=== PATIENT | female | born 1965 | race Caucasian/White ===

== ENCOUNTER 2024-11-04 10:31 | Emergency (ER) | payer BC, SELFPAY ==
--- OUTSIDE RECORDS SUMMARY | 2024-10-24 03:30 | XMS_ITS ---
Author Organization [facility] Address [address] [place] [address] Care Team Providers Care Tool Grinding Technician Name Role Phone Kristie Raudel Primary Care Provider [phone] Cat Foy Unavailable [phone] Allergies Allergen (clinical drug ingredient) Drug/Non Drug Allergy documented on EMR Reaction Allergy Type Onset Date Status ciprofloxacin Ciprofloxacin Unknown Drug Allergy Active Penicillin Unknown Drug Allergy Active REASON FOR VISIT 1 month f/u, Pt here for 1 month f/u. Pt stopped Caplyta d/t bad experience, very tired and lost some moments in time, shaky hands, and anxiety attacks. Sleep is crappy wakes up every hour or 2. Appetite is normal. [facility] Medications Medication SIG (Take, Route, Frequency, Duration) Notes Start Date End Date Status Citalopram Hydrobromide 40 MG 1 tablet Orally Once a day for 30 days Active traZODone HCl 50 MG 1 tablet once a day for 5 days, 2 tablets once a day for 5 days, 3 tablets once a day for 20 days Orally for 30 days 08/10/2024 Active oxyBUTYnin Chloride ER 10 MG 1 tablet Orally Once a day Not-Taking Caplyta 42 MG 1 capsule Orally Onc e a day for 30 days 07/13/2024 Not-Taking Lurasidone HCl 20 MG 1 tablet in the evening with food Orally Once a day for 30 days 10/24/2024 Active Levothyroxine Sodium 50 MCG 1 tablet in the morning on an empty stomach Orally Once a day Active Omeprazole 20 MG 1 capsule 1/2 to 1 hour before morning meal Orally twice a day Active Fenofibrate 145 MG 1 tablet Orally Once a day Active Famotidine 20 MG 1 tablet at bedtime as needed Orally twice a day Active Lisinopril-hydroCHLOROthia zide 20-25 MG 1 tablet Orally Once a day Active Magnesium Active Aspirin 81 81 MG 1 tablet Orally Once a day Active Vitamin D3 50 MCG (1999) 1 capsule Orally Once a day Active Vitamin B12 Active Niacin ER 1000 MG 1 tablet with food Orally Once a day Active ZyrTEC-D Allergy & Congestion Not-Taking Atorvastatin Calcium 40 MG 1 tablet Oral ly Once a day Active Vitamin C Active Solifenacin Succinate 10 MG 1 tablet Orally Once a day Active Social History Tobacco Use: Social History Observation Description Date Details (start date - stop date) Current Smoker NA - NA Depression Screening (PHQ-9): Question Answer Notes Little interest or pleasure in doing things Nearly every day Feeling down, depressed, or hopeless More than h intermediate the days Trouble falling or staying a sleep, or sleeping too much Nearly every day Feeling tired or having little energy Nearly benjamin ry day Poor appetite or overeating Nearly every day Feeling bad about yourself-o r that you are a failure or have let yourself or your family down Several days Trouble concentrating on thi ngs, such as reading the newspaper or watching television Nearly every day Moving or speaking so slowly that other people could have noticed. Or the opposite being so fidgety or restless that you have been moving around a lot more than usual Several days Thoughts that you would be b kimberly off , or of hurting yourself in some way Several days(Consider Suicide Assessment Risk) Total Score 20 Intepretation Severe Depression AUDIT-C (Standard) Question Answer Notes Did you have a drink containing alcohol in the p ast year? No Points 0 Interpretation Negative Tobacco Control (Standard) Question Answer Notes Tobacco use: Current smoker How often do you smoke cigarettes? Every day How many cigarettes a day do you smoke? 11-20 Vital Signs Height 66 in 10/24/2024 Weight 187.6 lbs 10/24/2024 BMI 30.28 kg/m2 10/24/2024 Blood pressure systolic 119 mm Hg 10/25/19 25 Blood pressure diastolic 78 mm Hg 025 Oximetry 93 % 10/24/2024 Heart Rate 117 /min 10/24/2024 Encounters Encounter Location Date Provider Diagnosis [facility] [address] [place] [address] 10/24/2024 Raudel Flowers Bipolar disorder, cu rrent episode mixed, moderate F31.62 Assessments Encounter Date Diagnosis (ICD Code) Assessment Notes Treatment Notes Treatment Clinical Notes Section Notes 10/24/2024 Bipolar disorder, current episode mixed, moderate (ICD-10 - F31.62) Patient will trial Latuda 20 mg follow-up in 2 months to discuss and evaluate. Patient will continue current treatment plan. Patient verbally acknowledges understanding instructions including medication education and has no further questions comments or concerns at this time. . Follow in 2 Month . Recommended treatment for Bipolar disorder includes FDA approved and OFF label medications: second generation antipsychotics and mood stabilizers. Discussed life threatening side effect of Lamotrigine. Pt is to monitor for new skin rashes or sensation of a sunburn or itchiness or redness, mouth sores or sores in mucus membranes, and call provider immediately and or go to ER, and stop the medication. Second generation antipsychotic medications can cause headache, drowsiness, agitation, dizziness, nausea, or extrapyramidal symptoms such as tremors, muscle spasms, slowness of movement or jerking of muscles. . Stable . The patient verbalizes understanding with all questions answered thoroughly and is in agreement with treatment plan. . Continue current treatment. Call for problems . GOALS: . Maintain medication regimen . _Improve mood stability . _Improve anxiety control . _Improve social and interpersonal functioning . Patient/Guardian will call sooner if symptoms worsen. Patient understands to go to ER if needed if symptoms become severe. . Crisis Intervention plan was discussed and agreed upon. Patient/Guardian will call 911 in case of emergency. Emergency contact information was provided to the patient/guardian. . Pharmacological management: . Alternative medication plans were discussed with the patient/guardian. All relevant side effects and potential adverse effects were discussed with the patient/guardian. Standard cautions and potential benefits were discussed. Patient/Guardian consented to the start/continuation of the treatment. Plan Of Treatment Medication Medication Name Sig Start Date Stop Date Notes Lurasidone HCl 20 MG 1 tablet in the benjamin flory with food Orally Once a day for 30 days 10/24/2024 Next Appt Details Follow Up: 2 Months, Reason: med check Provider Name:Cat hernandez, 11/14/2024 05:00:00 PM, [address] [place], [address], Provider Name:Cat hernandez, 11/28/2024 05:00:00 PM, [address] [place], [address], Provider Name:Raudel Flowers, 12/20/2024 07:30:00 AM, [address] [place], [address], Progress Notes * MOSHE ATWOODOB:1965 ( 59 yo F)Acc No.[id number]:10/24/2024 Behavioral Health Patient: EMILY MARTINEZ Provider: SOFIA Sinha :1965 A ge:59 Y S ex:Female Date:10/24/2024 Address:[address] [place], [place] [id number] Subjective: * Chief Complaints: * 1 month f/uPt here for 1 month f/u. Pt stopped Caplyta d/t bad experience, very tired and lost some moments in time, shaky hands, and anxiety attacks. Sleep is crappy wakes up every hour or 2. Appetite is normal. KSJ * HPI: C onstitutional: . Patient had adverse reaction to Caplyta actually had several fugue type states where she does not recall driving or picking up food. Pt is here for follow up. Pt is doing well, taking meds daily, tolerating well. Mood has not been fluctuating. Energy and motivation stable, concentration intact without distractibility. Sleeping though the night, feels rested. Attending work as scheduled. Denies increased goal oriented behavior or increase in purposeless activity. Depressive symptoms are not persistent, denies having sadness, anhedonia, isolating behaviors, or crying spells. Denies Euphoria. Pervasive irritability is controlled today. Anxiety not occurring. Tolerating meds well, compliant daily. Meaningful relationships intact. Would like to continue current treatment plan. . Denies suicidal or homicidal ideation or plan. No morbid thoughts. Interpersonal issues discussed. Support provided. Insight oriented/ Behavior modifying/ Supportive therapy . 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 M other: alive. P aternal Grand Father: . P aternal Grand Mother: . M aternal Grand Father: . M aternal Grand Mother: . 1 brother(s) . 2 son(s) , 1 daughter(s) . . * Social History: G eneral: D epression Screening (PHQ-9) L ittle interest or pleasure in doing things?Nearly every day F eeling down, depressed, or hopeless M ore than half the days T rouble falling or staying asleep, or sleeping too much N early every day F eeling tired or having little energy N early every day P oor appetite or overeating N early every day F eeling bad about yourself-or that you are a failure or have let yourself or your family down S everal T rouble concentrating on things, such as reading the newspaper or watching television N early every day M oving or speaking so slowly that other people could have noticed. Or the opposite being so fidgety or restless that you have been moving around a lot more than usual S everal days T houghts that you would be better off , or of hurting yourself in some way S everal (Consider Suicide Assessment Risk) T otal Score 2 0 I ntepretation S evere Depression D rug/Alcohol: A MELE-C (Standard) D id you have a drink containing alcohol in the past year? N o P oints 0 I nterpretation N egative T obacco Use: T obacco Control (Standard) T obacco use: C urrent smoker H ow often do you smoke cigarettes? E very day H ow many cigarettes a day do you smoke? 1 1-20 * Medications: T akingSolifenacin Succinate 10 MG Tablet 1 tablet Orally Once a day Atorvastatin Calcium 40 MG Tablet 1 tablet Orally Once a day Vitamin C Magnesium Vitamin B12 Vitamin D3 50 MCG (2000 UT) Capsule 1 capsule Orally Once a day Niacin ER 1000 MG Tablet Extended Release 1 tablet with food Orally Once a day Aspirin 81 81 MG Tablet Delayed Release 1 tablet Orally Once a day Fenofibrate 145 MG Tablet 1 tablet Orally Once a day Lisinopril-hydroCHLOROthiazide 20-25 MG Tablet 1 tablet Orally Once a day Famotidine 20 MG Tablet 1 tablet at bedtime as needed Orally twice a day Omeprazole 20 MG Capsule Delayed Release 1 capsule 1/2 to 1 hour before morning meal Orally twice a day Levothyroxine Sodium 50 MCG Tablet 1 tablet in the morning on an empty stomach Orally Once a day traZODone HCl 50 MG Tablet 1 tablet once a day for 5 days, 2 tablets once a day for 5 days, 3 tablets once a day for 20 days Orally Citalopram Hydrobromide 40 MG Tablet 1 tablet Orally Once a day Taking Solifenacin Succinate 10 MG Tablet 1 tablet Orally Once a day Taking Atorvastatin Calcium 40 MG Tablet 1 tablet Orally Once a day Taking Vitamin C Taking Magnesium Taking Vitamin B12 Taking Vitamin D3 50 MCG (2000 UT) Capsule 1 capsule Orally Once a day Taking Niacin ER 1000 MG Tablet Extended Release 1 tablet with food Orally Once a day Taking Aspirin 81 81 MG Tablet Delayed Release 1 tablet Orally Once a day Taking Fenofibrate 145 MG Tablet 1 tablet Orally Once a day Taking Lisinopril-hydroCHLOROthiazide 20-25 MG Tablet 1 tablet Orally Once a day Taking Famotidine 20 MG Tablet 1 tablet at bedtime as needed Orally twice a day Taking Omeprazole 20 MG Capsule Delayed Release 1 capsule 1/2 to 1 hour before morning meal Orally twice a day Taking Levothyroxine Sodium 50 MCG Tablet 1 tablet in the morning on an empty stomach Orally Once a day Taking traZODone HCl 50 MG Tablet 1 tablet once a day for 5 days, 2 tablets once a day for 5 days, 3 tablets once a day for 20 days Orally Taking Citalopram Hydrobromide 40 MG Tablet 1 tablet Orally Once a day Not-Taking/PRNZyrTEC-D Allergy & Congestion Caplyta 42 MG Capsule 1 capsule Orally Once a day oxyBUTYnin Chloride ER 10 MG Tablet Extended Release 24 Hour 1 tablet Orally Once a day Medication List reviewed and reconciled with the patientNot-Taking/PRN ZyrTEC-D Allergy & Congestion Not-Taking/PRN Caplyta 42 MG Capsule 1 capsule Orally Once a day Not-Taking/PRN oxyBUTYnin Chloride ER 10 MG Tablet Extended Release 24 Hour 1 tablet Orally Once a day Medication List reviewed and reconciled with the patient * Allergies: P enicillinCiprofloxacinno[Allergies Verified] Objective: * Vitals: H t: 66 in, Wt: 187.6 lbs, BMI:30.28Index, BP: 119/78 mm Hg, SaO2:93%, HR: 117 /min. * Examination: G eneral Examination: GENERAL APPEARANCE: A lert and oriented, cooperative. NEUROLOGIC EXAM: a lert and oriented x 3, no tremor, normal gait, appropriate for age. PSYCH g ood eye contact, oriented to person, oriented to place, oriented to time, appropriate mood and affect, denies SI/HI, affect normal, affect appropriate, appropriate for age, good eye contact, no thought disorder. General . AIMS EXAM:.AIMS Muscles of Facial Expression: NoneAIMS Lips and Perioral Area: NoneAIMS Jaw Area Involuntary Movements: NoneAIMS Tongue Involuntary Movements: NoneAIMS Upper Arms, Wrists, Hands, Fingers: NoneAIMS Lower Legs, Knees, Ankles, Toes: NoneAIMS Overall Abnormal Movement Severity: NoneAIMS Incapacitation Abnormal Movement: NoneAIMS Self Awareness of Abnormal Movement: Aware, None notedAIMS Current Teeth, Denture Problems: NoAIMS Movements Disappear in Sleep: No. .MENTAL STATUS EXAM:.Appearance: Appropriately dressed and groomed, good eye contact, cooperative, pleasantBehavior/Motor Activity: NormalGait/Station: Within normal limitsBH Speech: NormalMood: GoodAffect: FullThought processes/Associations: Logical and goal directedThought Content: Non-psychoticCognition/Attention/Memory/Concentration: Alert and oriented x 4; grossly intact attention; memory-recent/remote judged adequate by interviewerInsight: GoodJudgement: GoodBH language: Within normal limitsFund of Knowledge: Adequate.. Assessment: * Assessment: 1. B ipolar disorder, current episode mixed, moderate - F31.62 (Primary) Plan: * Treatment: * Procedure Codes: 3 078F DIAST BP < 80 MM [id number] SYST BP LT 130 MM [id number] RVW MEDS BY RX/DR IN RD * Follow Up: 2 Months (Reason: med check) * Images: * Sign off status: Completed true * Provider: SOFIA Sinha Date: 0 10/24/2024 Generated for Geovany hardy/Russell/eTransmitting on: 0 11/04/2024 10:47 AM EDT History and Physical Notes * Examination Category Sub-Category Detail Notes Category Not es General Examination GENERAL APPEARANCE: Alert an d oriented, cooperative NEUROLOGIC EXAM: alert and oriented x 3, no tremor, normal gait, appropriate for age DIABETIC FOOT EXAM Monofilament: normal PSYCH good eye contact, or iented to person, oriented to place, oriented to time, appropriate mood and affect, denies SI/HI, affect normal, affect appropriate, appropriate for age, good eye contact, no thought disorder General .AIMS EXAM:.AIMS Mus cles of Facial Expression: NoneAIMS Lips and Perioral Area: NoneAIMS Jaw Area Involuntary Movements: NoneAIMS Tongue Involuntary Movements: NoneAIMS Upper Arms, Wrists, Hands, Fingers: NoneAIMS Lower Legs, Knees, Ankles, Toes: NoneAIMS Overall Abnormal Movement Severity: NoneAIMS Incapacitation Abnormal Movement: NoneAIMS Self Awareness of Abnormal Movement: Aware, None notedAIMS Current Teeth, Denture Problems: NoAIMS Movements Disappear in Sleep: No. .MENTAL STATUS EXAM:.Appearance: Appropriately dressed and groomed, good eye contact, cooperative, pleasantBehavior/Motor Activity: NormalGait/Station: Within normal limitsBH Speech: NormalMood: GoodAffect: FullThought processes/Associations: Logical and goal directedThought Content: Non-psychoticCognition/Attention/Memory/Concentration: Alert and oriented x 4; grossly intact attention; memory-recent/remote judged adequate by interviewerInsight: GoodJudgement: GoodBH language: Within normal limitsFund of Knowledge: Adequate.
--- OUTSIDE RECORDS SUMMARY | 2024-10-31 13:00 | XMS_ITS ---
Author Organization [facility] Address [address] [place] [address] Care Team Providers Care Firesetter Name Role Phone Raudel Flowers Primary Care Provider [phone] Cat Foy Unavailable [phone] REASON FOR VISIT BH F/U Medications Medication SIG (Take, Route, Frequency, Duration) Notes Start Date End Date Status Lurasidone HCl 20 MG 1 tablet in the evening with food Orally Once a day for 30 days 10/24/2024 Active oxyBUTYnin Chloride ER 10 MG 1 tablet Orally Once a day Not-Taking Caplyta 42 MG 1 capsule Orally Onc e a day for 30 days 07/13/2024 Not-Taking Citalopram Hydrobromide 40 MG 1 tablet Orally Once a day for 30 days Active traZODone HCl 50 MG 1 tablet once a day for 5 days, 2 tablets once a day for 5 days, 3 tablets once a day for 20 days Orally for 30 days 08/10/2024 Active Omeprazole 20 MG 1 capsule 1/2 to 1 hour before morning meal Orally twice a day Active Famotidine 20 MG 1 tablet at bedtime as needed Orally twice a day Active Lisinopril-hydroCHLOROthia zide 20-25 MG 1 tablet Orally Once a day Active Fenofibrate 145 MG 1 tablet Orally Once a day Active Levothyroxine Sodium 50 MCG 1 tablet in the morning on an empty stomach Orally Once a day Active Aspirin 81 81 MG 1 tablet Orally Once a day Active Niacin ER 1000 MG 1 tablet with food Orally Once a day Active Vitamin D3 50 MCG (1999 UT) 1 capsule Orally Once a day Active Vitamin B12 Active Magnesium Active ZyrTEC-D Allergy & Congestion Not-Taking Atorvastatin Calcium 40 MG 1 tablet Oral ly Once a day Active Solifenacin Succinate 10 MG 1 tablet Orally Once a day Active Vitamin C Active Encounters Encounter Location Date Provider Diagnosis [facility] [address] [place] [address] 10/31/2024 Cat Foy Bipolar disorder, current episode mixed, moderate F31.62 Assessments Encounter Date Diagnosis (ICD Code) Assessment Notes Treatment Notes Treatment Clinical Notes Section Notes 10/31/2024 Bipolar disorder, current episode mixed, moderate (ICD-10 - F31.62) Plan Of Treatment Next Appt Details Follow Up: 2 Weeks, Reason: Provider Name:Cat hernandez, 11/14/2024 05:00:00 PM, [address] [place], [address], Provider Name:Cat hernandez, 11/28/2024 05:00:00 PM, [address] [place], [address], Provider Name:Raudel Flowers, 12/20/2024 07:30:00 AM, [address] [place] [address], [address], Progress Notes * MOSHE ATWOODOB:1965 ( 59 yo F)Acc No.[id number]:10/31/2024 F/U - Patient Patient: EMILY MARTINEZ Provider: Bienvenido Foy :1965 A ge:59 Y S ex:Female Date:10/31/2024 Address:[address] [place], [place] [id number] Pcp:Raudel Flowers Subjective: * Chief Complaints: * 1 . F/U. * Medications: T aking Solifenacin Succinate 10 MG Tablet 1 tablet Orally Once a day , Taking Atorvastatin Calcium 40 MG Tablet 1 tablet Orally Once a day , Taking Vitamin C , Taking Magnesium , Taking Vitamin B12 , Taking Vitamin D3 50 MCG (1999 UT) Capsule 1 capsule Orally Once a day , Taking Niacin ER 1000 MG Tablet Extended Release 1 tablet with food Orally Once a day , Taking Aspirin 81 81 MG Tablet Delayed Release 1 tablet Orally Once a day , Taking Fenofibrate 145 MG Tablet 1 tablet Orally Once a day , Taking Lisinopril-hydroCHLOROthiazide 20-25 MG Tablet 1 tablet Orally Once a day , Taking Famotidine 20 MG Tablet 1 tablet at bedtime as needed Orally twice a day , Taking Omeprazole 20 MG Capsule Delayed Release 1 capsule 1/2 to 1 hour before morning meal Orally twice a day , Taking Levothyroxine Sodium 50 MCG Tablet 1 tablet in the morning on an empty stomach Orally Once a day , Taking traZODone HCl 50 MG Tablet 1 tablet once a day for 5 days, 2 tablets once a day for 5 days, 3 tablets once a day for 20 days Orally , Taking Citalopram Hydrobromide 40 MG Tablet 1 tablet Orally Once a day , Taking Lurasidone HCl 20 MG Tablet 1 tablet in the evening with food Orally Once a day , Not-Taking/PRN ZyrTEC-D Allergy & Congestion , Not-Taking/PRN Caplyta 42 MG Capsule 1 capsule Orally Once a day , Not- Taking/PRN oxyBUTYnin Chloride ER 10 MG Tablet Extended Release 24 Hour 1 tablet Orally Once a day Objective: Therapeutic Interventions: Assessment: * Assessment: 1. B ipolar disorder, current episode mixed, moderate - F31.62 (Primary) Plan: * Procedure Codes: 9 0837 PSYTX EST PT&/FAMILY 60 MIN (53+) * Follow Up: 2 Weeks * Images: Care Plan Details* Problem B H F/U Progress Note Present At Appointment: P atient Session Type: F justin to Face Start Time/End Time: S tart: 5:08End: 6:06 Mental Status Examination Orientation: O riented x 4 Mood: A nxious Affect: A ppropriate Insight/Judgment: F air Thought Process: C ircumstantial Speech: N ormal Intervention Risk Assessment: P T denies all areas of risk. No contrary indications present. Therapy Modality: c ognitive behavioral Interventions: a ssess safety risks;cognitive challenging;cognitive refocusing;cognitive reframing;encourage expression of needs;emotion regulation;healthy boundaries;identify unmet emotional needs;reflective listening;increase awareness of warning signs to triggers;problem-solve barriers;process trauma/significant life events;supportive reflection;exploration of coping skillsComments :NEGATIVE RETOUCHER offered supportive listening and validation of patients feelings. NEGATIVE RETOUCHER provided feedback as needed. NEGATIVE RETOUCHER worked with patient on her own self-esteem and working on amends per patient request. NEGATIVE RETOUCHER worked with patient on continued use of coping skills. Response to Intervention: P atient reports she started a new medication and that she was happy to start something as she felt that she was unraveling. Patient reports she has had some insight on her past relationships and accountability of them. Patient reports she feels content in her life currently. Progress: l ow * Sign off status: Completed true * Provider: Bienvenido Foy Date: 0 10/31/2024 Generated for Geovany dash/Russell/Rosalba on: 0 11/04/2024 10:46 AM EDT
--- OUTSIDE RECORDS SUMMARY | 2024-11-01 11:45 | XMS_ITS | Encounter Summary ---
Author Organization [facility] Address [address] [place] [address] Care Team Providers Care Dianeticist Name Role Phone Basil Finn MD Primary Care Provider [phone] Encounter Details Date Type Department Care Team ([facility] st Contact Info) Description 11/01/2024 11:45 AM EDT [facility] [address] [place] [address] Basil Finn MD [address] [place] [phone] Degeneration of intervertebral disc of lumbar region with lower extremity pain (Primary Dx) Social History Tobacco Use Types Packs/Day Years Used Date Smoking Tobacco: Every Day Cigarettes 1.5 78.4 Started: 1977 Passive Smoke Exposure: Current Smokeless Tobacco: Never Tobacco Cessation:Ready to Q uit: No; Counseling Given: Yes Alcohol Use Standard Drinks/Week Comments Not Currently 0 (1 standard drink = 0.6 oz pur e alcohol) B1300 Health Literacy Answer Date Recor ded How often do you need to hav e someone help you when you read instructions, pamphlets, or other written material from your doctor or pharmacy? Never 01/04/2024 Social Connection and Isolat ion Panel [NHANES] Answer Date Recorded In a typical week, how many times do you talk on the phone with family, friends, or neighbors? Once a week 01/04/2024 How often do you get togethe r with friends or relatives? Once a week 01/04/2024 How often do you attend chur or church services? More than 4 times per year 01/04/2024 Do you belong to any clubs o r organizations such as mandaeism groups, unions, fraternal or athletic groups, or school groups? No 01/04/2024 How often do you attend meet ings of the clubs or organizations you belong to? Never 01/04/2024 Are you , , di vorced, , never , or living with a partner? 01/04/2024 AUDIT-C Answer Date Recorded Q1: How often do you have a drink containing alc ohol? Monthly or less 01/04/2024 Q2: How many drinks containi ng alcohol do you have on a typical day when you are drinking? 1 or 2 01/04/2024 Q3: How often do you have si x or more drinks on one occasion? Less than monthly 01/04/2024 Overall Financial Resource Strain (CARDIA) Answe r Date Recorded How hard is it for you to pa y for the very basics like food, housing, medical care, and heating? Not hard at all 01/04/2024 [facility] - Occupational Stress Questionnaire Answer Date Recorded Do you feel stress - tense, restless, nervous, or anxious, or unable to sleep at night because your mind is troubled all the time - these days? Very much 01/04/2024 Exercise Vital Sign Answer Date Recorde d On average, how many days pe r week do you engage in moderate to strenuous exercise (like a brisk walk)? 1 day 01/04/2024 On average, how many minutes do you engage in exercise at this level? 10 min 01/04/2024 Hunger Vital Sign Answer Date Recorded Within the past 12 months, y ou worried that your food would run out before you got the money to buy more. Never true 01/04/20 24 Within the past 12 months, t he food you bought just didn't last and you didn't have money to get more. Never true 01/04/2024 PRAPARE - Transportation Answer Date Re corded In the past 12 months, has l ack of transportation kept you from medical appointments or from getting medications? No 12/23 In the past 12 months, has l ack of transportation kept you from meetings, work, or from getting things needed for daily living? No 01/04/2024 Housing Stability Vital Sign Answer Bernardo e Recorded In the last 12 months, was t here a time when you were not able to pay the mortgage or rent on time? No 01/04/2024 In the past 12 months, how m any times have you moved where you were living? 0 01/04/2024 At any time in the past 12 m [facility], were you homeless or living in a correction (including now)? No 01/04/2024 Comments No Sex and Gender Information Value Date Recorded Sex Assigned at Not on file Legal Sex Female 6:44 PM EDT Gender Identity Not on file Sexual Orientation Not on file documented as of this encounter Last Filed Vital Signs Vital Sign Reading Time Taken Comments Blood Pressure 126/76 11/01/2024 11:48 AM EDT Pulse 93 11/01/2024 11:48 AM EDT Temperature 36.6 C (97.8 F) 11/01/2024 11:48 AM EDT Respiratory Rate - - Oxygen Saturation 97% 11/01/2024 11:48 AM EDT Inhaled Oxygen Concentration - - Weight 86.8 kg (191 lb 4 oz) 11/01/2024 11:48 AM EDT Height 167.6 cm (5' 6 ) 11/01/2024 11:48 AM EDT Body Mass Index 30.87 11/01/2024 11:48 AM EDT documented in this encounter Progress Notes * Basil Finn MD - 11/01/2024 12:24 PM EDTAssociated Problem(s): DDD (degenerative disc disease), lumbar Developed sciatica and likely related to DDD. Start prednisone and use norco PRN. Continue naproxen. Handout with ROM exercises to patient. If no improvement will need PT and x-ray. * Basil Finn MD - 11/01/2024 11:45 AM EDT Images from the original note were not included. Subjective Patient ID: Kimberly Andino is a 59 y.o. female who presents for No chief complaint on file.. C/o pain in left gluteal region and back of leg for months. Pain in gluteal region next to bone where she sits. Pain down butt cheek into back left leg. Pain stops above knee. History of lumbar DDD but no pain in back. Pain pain into groin or outer hip. Pain worse with sitting but now having pain with walking and standing. No change in activity and no fall, injury, or trauma. Using naproxen and not much relief. Review of Systems Respiratory: Negative for cough, shortness of breath and wheezing. Cardiovascular: Negative for chest pain and palpitations. Gastrointestinal: Negative for abdominal pain, diarrhea, nausea and vomiting. Genitourinary: Negative for dysuria. Objective Physical Exam Constitutional: General: She is not in acute distress. Appearance: Normal appearance. HENT: Head: Normocephalic. Right Ear: Tympanic membrane normal. Left Ear: Tympanic membrane normal. Eyes: Extraocular Movements: Extraocular movements intact. Pupils: Pupils are equal, round, and reactive to light. Cardiovascular: Rate and Rhythm: Normal rate and regular rhythm. Heart sounds: No murmur heard. No friction rub. No gallop. Pulmonary: Effort: Pulmonary effort is normal. Breath sounds: Normal breath sounds. No wheezing, rhonchi or rales. Abdominal: General: Bowel sounds are normal. There is no distension. Palpations: Abdomen is soft. Tenderness: There is no abdominal tenderness. There is no guarding or rebound. Musculoskeletal: Cervical back: Neck supple. Right lower leg: No edema. Left lower leg: No edema. Neurological: Mental Status: She is alert. Assessment/Plan Problem List Items Addressed This Visit DDD (degenerative disc disease), lumbar - Primary Developed sciatica and likely related to DDD. Start prednisone and use norco PRN. Continue naproxen. Handout with ROM exercises to patient. If no improvement will need PT and x-ray. Relevant Medications predniSONE (Deltasone) 50 MG tablet HYDROcodone-acetaminophen (Briscoe) 5-325 MG tablet documented in this encounter Plan of Treatment Upcoming Encounters Date Type Department Care Team (Late st Contact Info) Description 01/04/2025 7:00 AM EDT Office Visit [facility] [address] [place] [address] Basil Finn MD [address] [place] [address] documented as of this encounter Visit Diagnoses Diagnosis Degeneration of intervertebral disc of lumbar region with lower extremity pain- Primary documented in this encounter Care Teams Dianeticist Relationship Specialty Start Date End Date Basil Finn MD [address] [place] [address] PCP - General Family Medicine 06/22/23 documented as of this encounter
[2024-11-04 10:36] VITALS: BP 130/92; PULSE 80; TEMP 36.7; O2SAT 94; BMI 29.9
--- OUTSIDE RECORDS SUMMARY | 2024-11-04 10:47 | XMS_ITS | Patient Health Record ---
Author Organization [facility] [place] Address [address] [place] [address] Support Name Relationship Address Phone Sheela Bajwa Emergency Contact Unknown Kimberly Andino Guarantor Unknown [phone] Reason For Referral No Information Medications Medication SIG (Take, Route, Frequency, Duration) Notes Start Date End Date Status aspirin 81 mg 1 tablet DAILY Active Zantac 300 mg 1 tablet DAILY Active loratadine 10 mg 1 tablet DAILY Active Lisinopril 10 mg 1 tablet DAILY Active NexIUM 40 mg 2 delayed release ca psule DAILY Active Synthroid 50 mcg (0.05 mg) 1 tablet DAILY 05/25/18 Active Tricor 145 mg 1 tablet DAILY Active Niaspan 1000 mg 2 tablet, extended r elease DAILY Active Plan Of Treatment Pending Test Test Name Order Date CRP 09/08/2023 BUN 02/05/2023 ESR 09/08/2023 ANTI CARDIOLIPIN AB IGG IGA IGM 09/08/19 24 ANTI THROMBIN 3 FUNCT 09/08/2023 PROTEIN S ACTIVITY 09/08/2023 CBC AND AUTO DIFF * 02/05/2023 CREATININE 02/05/2023 HOMOCYSTEINE, SERUM 09/08/2023 HGB A1C (GLYCO-HGB) 02/05/2023 APC RESISTANCE PANEL 09/08/2023 MTHFR 09/08/2023 LIPID PANEL 02/05/2023 LIPID PANEL 09/08/2023 Insurance Providers Payer Name Payer Address Payer Phone Subscriber Number Group Number Insured Name Patient Relationship to Insured Coverage Start Date Coverage End Date [employer] [place] [address] [facility] TYREE ADRIAN [id number] [phone] [id number] Kimberly Andino Self - patient is the insured 1
--- OUTSIDE RECORDS SUMMARY | 2024-11-04 10:47 | XMS_ITS | Encounter Summary ---
Author Organization [facility] Address [id number] [address] [place] [address] Care Team Providers Care Multimedia Engineer Name Role Phone Basil Finn MD Primary Care Provider [phone] Encounter Details Date Type Department Care Team ([facility] Contact Info) Description 08/19/2023 Telephone [facility] - Enzo Negrtee MD [address] [facility] [address] [place] [phone] Lizett Newman CMA Social History Tobacco Use Types Packs/Day Years Used Date Smoking Tobacco: Former Cigarettes 1 40 1 05/1982 - 03/2023 Smokeless Tobacco: Never Alcohol Use Standard Drinks/Week Comments Not Currently 0 (1 standard drink = 0.6 oz pur e alcohol) Childcare Answer Date Recorded Childcare Unknown 10/28/2018 Employment Answer Date Recorded Employment Unknown 10/28/2018 Hunger Screening Answer Date Recorded Within the past 12 months we worried whether our food would run out before we got money to buy more. Never True 08/19/2023 Within the past 12 months th e food we bought just didn't last and we didn't have money to get more. Never True 08/19/2023 Purpose - Life Answer Date Recorded Purpose and direction in life Unknown Comments No Sex and Gender Information Value Date Recorded Sex Assigned at Female 08/09/2023 4:50 PM EDT Legal Sex Female 12:58 PM EDT Gender Identity Female 08/09/2023 4:50 PM EDT Sexual Orientation Straight 08/09/2023 4: 50 PM EDT documented as of this encounter Miscellaneous Notes * Telephone Encounter - Lizett Newman CMA - 08/19/2023 9:44 AM EDT Called patient and confirmed she had CT scheduled. She states she is having it done in December and she follows up with Dr. Negrete in January,. documented in this encounter Plan of Treatment Not on file documented as of this encounter Visit Diagnoses Not on filedocumented in this encounter Care Teams Multimedia Engineer Relationship Specialty Start Date End Date Basil Finn MD PCP - General Family Medicine 01/20/24 documented as of this encounter
--- OUTSIDE RECORDS SUMMARY | 2024-11-04 10:48 | XMS_ITS | Patient Health Record ---
Author Organization [facility] es Address [address] [place] [address] Care Team Providers Care Screen Tender Helper Name Role Phone Kristie Raudel Primary Care Provider [phone] Cat Foy Unavailable [phone] Allergies Allergen (clinical drug ingredient) Drug/Non Drug Allergy documented on EMR Reaction Allergy Type Onset Date Status ciprofloxacin Ciprofloxacin Unknown Drug Allergy Active Penicillin Unknown Drug Allergy Active Reason For Referral Reason Patient wishes to se cure medication management and is fine with [place] office. Patient has MDD and currently takes Celexa and has for years. Patient reports she feels it is not helping any longer. Patient would like to explore ADD (Inattentive type) and took Ritalin as a adolescent. Diagnosis 1 Major depressive dis order, recurrent (F33.9) Referral Organization [facility] Referring Provider First Name Cat Referring Provider Last Name Law Referring Provider Speciality Licensed C louise Supervisory It Specialist Referred Organization [facility] Referred Provider Cat Foy Referred Address [address] [place], [place],[address], Referred Provider Specialty Medicatio ns Referral Priority Routine Medications Medication SIG (Take, Route, Frequency, Duration) Notes Start Date End Date Status ZyrTEC-D Allergy & Congestion Not-Taking Atorvastatin Calcium 40 MG 1 tablet Oral ly Once a day Active Omeprazole 20 MG 1 capsule 1/2 to 1 hour before morning meal Orally twice a day Active Solifenacin Succinate 10 MG 1 tablet Orally Once a day Active Famotidine 20 MG 1 tablet at bedtime as needed Orally twice a day Active Lisinopril-hydroCHLOROthia zide 20-25 MG 1 tablet Orally Once a day Active Fenofibrate 145 MG 1 tablet Orally Once a day Active Aspirin 81 81 MG 1 tablet Orally Once a day Active Niacin ER 1000 MG 1 tablet with food Orally Once a day Active Lurasidone HCl 20 MG 1 tablet in the evening with food Orally Once a day for 30 days 10/24/2024 Active Vitamin D3 50 MCG (2000 UT) 1 capsule Orally Once a day Active oxyBUTYnin Chloride ER 10 MG 1 tablet Orally Once a day Not-Taking Vitamin B12 Active Caplyta 42 MG 1 capsule Orally Onc e a day for 30 days 07/13/2024 Not-Taking Magnesium Active Citalopram Hydrobromide 40 MG 1 tablet Orally Once a day for 30 days Active Vitamin C Active traZODone HCl 50 MG 1 tablet once a day for 5 days, 2 tablets once a day for 5 days, 3 tablets once a day for 20 days Orally for 30 days 08/10/2024 Active Levothyroxine Sodium 50 MCG 1 tablet in the morning on an empty stomach Orally Once a day Active Social History Tobacco Use: Social History Observation Description Date Details (start date - stop date) Current Smoker NA - NA Depression Screening (PHQ-9): Question Answer Notes Little interest or pleasure in doing things Nearly every day Feeling down, depressed, or hopeless More than h malcom the days Trouble falling or staying a [...] cigarettes a day do you smoke? 11-20 Problems Problem Type SNOMED Code ICD Code Onset Dates Problem Status W/U Status Risk Notes Problem [id number] Bipolar disorder, current episode mixed, moderate (F31.62) Active confirmed Problem Anxiety (12321966) Anxiety (F41.9) Active confirmed Problem Major depressive disorder, recurrent (F33.9) Active confirmed Vital Signs Heart Rate 117 /min 10/24/2024 Temperature 98.2 degrees Fahrenheit 07/13/2024 Oximetry 93 % 10/24/2024 Blood pressure diastolic 78 mm Hg 10/24/2024 Height 66 in 10/24/2024 Blood pressure systolic 119 mm Hg 10/24/2024 Weight 187.6 lbs 10/24/2024 BMI 30.28 kg/m2 10/24/2024 Encounters Encounter Location Date Provider Diagnosis [facility] [address] [place] [address] 06/13/2024 Cat Foy Major depressive disorder, recurrent F33.9 and Anxiety F41.9 [facility] [address] [place] [address] 06/28/2024 Cat Foy Major depressive disorder, recurrent F33.9 and Anxiety F41.9 [facility] [address] [place] [address] 07/28/2024 Cat Foy Bipolar disorder, current episode mixed, moderate F31.62 [facility] [address] [place] [address] 09/19/2024 Cat Foy Bipolar disorder, current episode mixed, moderate F31.62 [facility] [address] [place] [address] 10/10/2024 Cat Foy Bipolar disorder, current episode mixed, moderate F31.62 and Anxiety F41.9 [facility] [address] [place] [address] 10/31/2024 Cat Law Bipolar disorder, current episode mixed, moderate F31.62 [facility] [address] [place] [address] 07/13/2024 Kip Soviak Bipolar disorder, current episode mixed, moderate F31.62 [facility] [address] [place] [address] 08/10/2024 Kip Soviak Bipolar disorder, current episode mixed, moderate F31.62 [facility] [address] [place] [address] 09/23/2024 Raudel Flowers Bipolar disorder, current episode mixed, moderate F31.62 [facility] [address] [place] [address] 10/24/2024 Raudel Flowers Bipolar disorder, current episode mixed, moderate F31.62 [facility] [address] [place] [address] 06/01/2024 Cat Foy [facility] [address] [place] [address] 10/10/2024 Raudel Flowers Assessments Encounter Date Diagnosis (ICD Code) Assessment [...] consented to the start/continuation of the treatment. 10/31/2024 Bipolar disorder, current episode mixed, moderate (ICD-10 - F31.62) 06/13/2024 Anxiety (ICD-10 - F41.9) 06/13/2024 Major depressive disorder, recurrent (ICD-10 - F33.9) 06/28/2024 Major depressive disorder, recurrent (ICD-10 - F33.9) 07/13/2024 Bipolar disorder, current episode mixed, moderate (ICD-10 - F31.62) Based on DSM V, this patient meets the criteria for the diagnosis of: _ . Bipolar 1 Disorder . Recommended treatment is: _ Recommended treatment for Bipolar disorder includes FDA [...] of movement or jerking of muscles. . The patient verbalizes understanding with all questions answered thoroughly and is in agreement with treatment plan. . . Continue current treatment Tolerating meds well, compliant Call for problems . GOALS: . Maintain medication regimen _Improve mood stability _Improve anxiety control _Improve social and interpersonal functioning . Informed consent obtained: YES, we discussed the diagnosis/diagnoses , the treatment options, treatment(s) recommended vs. no treatment. We discussed risks and benefits of treatment options, treatment recommendations vs. no treatment. . Currently at low risk for self harm. Denies ongoing feelings of hopelessness. Denies ongoing suicidal ideation, intent or plan in session. . 07/28/2024 Bipolar disorder, current episode mixed, moderate (ICD-10 - F31.62) 08/10/2024 Bipolar disorder, current episode mixed, moderate (ICD-10 - F31.62) Patient will continue current treatment plan. Patient verbally acknowledges understanding instructions including medication education and has no further questions comments or concerns at this time. . Follow in 1 Month . Recommended treatment for Bipolar disorder [...] consented to the start/continuation of the treatment. 09/19/2024 Bipolar disorder, current episode mixed, moderate (ICD-10 - F31.62) 09/23/2024 Bipolar disorder, current episode mixed, moderate (ICD-10 - F31.62) Patient will continue current treatment plan. Patient verbally acknowledges understanding instructions including medication education and has no further questions comments or concerns at this time. . Follow in 1 Month . Recommended treatment for Bipolar disorder [...] consented to the start/continuation of the treatment. 10/10/2024 Bipolar disorder, current episode mixed, moderate (ICD-10 - F31.62) 10/10/2024 Anxiety (ICD-10 - F41.9) 06/28/2024 Anxiety (ICD-10 - F41.9) Plan Of Treatment Next Appt Details Provider Name:Cat hernandez, 11/14/2024 05:00:00 PM, [address] [place], [address], Provider Name:Cat hernandez, 11/28/2024 05:00:00 PM, [address] [place], [address], Provider Name:Raudel Flowers, 12/20/2024 07:30:00 AM, [address] [place] [address], [address], Insurance Providers Payer Name Payer Address Payer Phone Subscriber Number Group Number Insured Name Patient Relationship to Insured Coverage Start Date Coverage End Date ANTHEM Primary [address] [place] [phone] [id number] EMILY ATWOOD Self - patient is the insured Medical (General) History Medical History History ICD Code type 2 diabetes hypertension hyperlipidemia GERD arthritis stroke x4 (not to her brain) Surgical History Surgery Date(Month/Year) x4 bilateral carpel tunnel cholecystectomy lumpectomy rt side breast augmentation right ovary removed Hospitalization History Reason Date(Month/Year) Stroke x4 (not to her brain) Chest pain Pysch x1 Child
--- OUTSIDE RECORDS SUMMARY | 2024-11-04 10:48 | XMS_ITS | Encounter Summary ---
Author Organization [facility] Address [address] [place] [address] Care Team Providers Care Metal Technician Name Role Phone Basil Finn MD Primary Care Provider [phone] Basil Finn MD Unavailable Encounter Details Date Type Department Care Team ([facility] Contact Info) Description 06/06/2024 Orders Only [facility] [address] [place] [address] Basil Finn MD [address] [place] [address] Social History Tobacco Use Types Packs/Day Years Used Date Smoking Tobacco: Every Day Cigarettes 1.5 30 Smokeless Tobacco: Never B1300 Health Literacy Answer Date Recor ded [...] How often do you attend chur or yazdanism services? More than 4 times per year 01/04/2024 Do you belong to any clubs o r organizations such as muslim groups, unions, fraternal or athletic groups, or [...] and heating? Not hard at all 01/04/2024 [facility] - Occupational Stress [...] any time in the past 12 m [facility], were you homeless or living in a [place] health care facility (including now)? No 01/04/2024 Comments Unknown Sex and Gender Information Value Date Recorded Sex Assigned at Not on file Legal Sex Female 6:44 PM EDT Gender Identity Not on file Sexual Orientation Not on file documented as of this encounter Plan of Treatment Upcoming Encounters Date Type Department Care Team (Late st Contact Info) Description 01/04/2025 7:00 AM EDT Office Visit [facility] [address] [place] [address] Basil Finn MD [address] [place] [address] documented as of this encounter Procedures Procedure Name Priority Date/Time Associated Diagnosis Comments DIABETES EYE EXAM Routine 06/06/2024 2:14 PM EST documented in this encounter Results * Diabetes Eye Exam (06/06/2024 2:14 PM EST) Basil Finn MD HEALTH MAINTENANCE Final Result documented in this encounter Visit Diagnoses Not on filedocumented in this encounter Care Teams Metal Technician Relationship Specialty Start Date End Date Basil Finn MD [address] [place] [address] PCP - General Family Medicine 06/22/23 Basil Finn MD [address] [place] [address] PCP - [employer] 02/23/24 documented as of this encounter
--- OUTSIDE RECORDS SUMMARY | 2024-11-04 10:50 | XMS_ITS | Encounter Summary ---
Author Organization [employer] Address [id number] [address] [place] [address] Care Team Providers Care Cruise Guide Name Role Phone Basil Finn MD Primary Care Provider [phone] Reason for Visit * Reason Onset Date Comments referral 02/10/2023 Encounter Details Date Type Department Care Team ([facility] Contact Info) Description 02/10/2023 Telephone [facility] [address] [place] [id number] Dionne Conroy referral Social History Tobacco Use Types Packs/Day Years Used Date Smoking Tobacco: Every Day Cigarettes 1 40 Smokeless Tobacco: Never Alcohol Use Standard Drinks/Week Comments No 0 (1 standard drink = 0.6 oz pur e alcohol) RARE Childcare Answer Date Recorded Childcare Unknown 10/28/2018 Employment Answer Date Recorded Employment Unknown 10/28/2018 Hunger Screening Answer Date Recorded Within the past 12 months we worried whether our food would run out before we got money to buy more. Never True 02/11/2023 Within the past 12 months th e food we bought just didn't last and we didn't have money to get more. Never True 02/11/2023 Purpose - Life Answer Date Recorded Purpose and direction in life Unknown Comments No Sex and Gender Information Value Date Recorded Sex Assigned at Female 08/09/2023 4:50 PM EDT Legal Sex Female 12:58 PM EDT Gender Identity Female 08/09/2023 4:50 PM EDT Sexual Orientation Straight 08/09/2023 4: 50 PM EDT documented as of this encounter Miscellaneous Notes * Telephone Encounter - Dionne Rafiq - 02/10/2023 2:43 PM EDT Patient called to schedule a new patient appointment. No referral was received. Detective Lieutenant informed thepatient that a complete referral is required before scheduling. Patient verbalized understanding. Patient said they would contact their primary care doctor and was given referral fax number. documented in this encounter Plan of Treatment Not on file documented as of this encounter Visit Diagnoses Not on filedocumented in this encounter Care Teams Cruise Guide Relationship Specialty Start Date End Date Basil Finn MD PCP - General Family Medicine 01/20/24 documented as of this encounter
--- OUTSIDE RECORDS SUMMARY | 2024-11-04 10:50 | XMS_ITS | Clinical Summary ---
Author Organization [facility] Address [address] [place] [address] Care Team Providers Care Customer Service Operator Name Role Phone Basil Finn MD Primary Care Provider [phone] Allergies Active Allergy Reactions Criticality Noted Date Comments Ciprofloxacin GI intolerance 06/22/2023 Penicillins Rash Low 06/22/2023 Medications omeprazole OTC (PriLOSEC OTC) 20 MG EC tablet Take 20 mg by mouth in the morning. Take before meals. Do not crush, chew, or split.. Active citalopram (CeleXA) 40 MG tabletIndications:Gene ralized anxiety disorder Take 1 tablet (40 mg) by mouth Daily 30 tablet 11 024 Active albuterol HFA 90 mcg/act inhalerIndications:SOB (shortness of breath) Inhale 2 puffs every 4 (four) hours if needed for wheezing 18 g 3 024 Active niacin (Niaspan) 1000 MG ER tabletIndications:Brandie al physical exam Take 1 tablet (1,000 mg) by mouth at bedtime Do not crush, chew, or split. 30 tablet 11 024 03/03 Active glucose blood (OneTouch Ultra) test stripIndications:Diabe karine mellitus without complication (HCC) Use as instructed test once daily 50 strip 3 024 Active Lancets (OneTouch Delica Plus [id number]) miscIndications:Type 2 diabetes mellitus with hyperglycemia, without long-term current use of insulin (HCC) Test once daily 100 each 3 025 Active levothyroxine (Synthroid, Levoxyl) 50 MCG tabletIndications:Acqu ired hypothyroidism Take 1 tablet (50 mcg) by mouth in the morning. Take before meals. 90 tablet 3 025 Active lisinopril-hydroCHLORO thiazide 20-25 MG tabletIndications:Esse ntial hypertension, benign Take 1 tablet by mouth Daily 30 tablet 11 025 06/29 Active atorvastatin (Lipitor) 40 MG tabletIndications:Dysl ipidemia Take 1 tablet (40 mg) by mouth at bedtime 30 tablet 5 025 Active ALPRAZolam (Xanax) 0.5 MG tabletIndications:Gene ralized anxiety disorder Take 1 tablet (0.5 mg) by mouth 3 (three) times a day as needed for anxiety for up to 10 days 30 tablet 025 Active solifenacin (VESIcare) 10 MG tabletIndications:Mixe d stress and urge urinary incontinence Take 1 tablet (10 mg) by mouth Daily Swallow tablet whole; do not crush, chew, or split. 30 tablet 5 025 Active cholecalciferol (Vitamin D-3) 50 MCG (2000 UT) tabletIndications:Obdulia min D deficiency Take 1 tablet by mouth daily 30 tablet 5 025 Active fenofibrate (Tricor) 145 MG tabletIndications:Fami lial hypertriglyceridemia Take 1 tablet (145 mg) by mouth Daily 30 tablet 11 025 09/30 Active lurasidone (Latuda) 20 MG tablet Take 20 mg by mouth Daily Active traZODone (Desyrel) 50 MG tablet Take 50 mg by mouth at bedtime Active Caplyta 42 MG capsule 1 capsule 1 (one) time each day at the same time 025 Active predniSONE (Deltasone) 50 MG tabletIndications:Dege neration of intervertebral disc of lumbar region with lower extremity pain Take 1 tablet (50 mg) by mouth Daily for 6 days 6 tablet 025 11/07 Active HYDROcodone-acetaminop hen ([place]) 5-325 MG tabletIndications:Dege neration of intervertebral disc of lumbar region with lower extremity pain Take 1 tablet by mouth 4 (four) times a day as needed for severe pain for up to 5 days 20 tablet 025 11/06 Active cetirizine (ZyrTEC) 10 MG tablet Take 10 mg by mouth in the morning. 11/01 Discontinued Active Problems Problem Noted Date Diagnosed Date Bipolar disorder, current episode mixed, moderat e 11/01/2024 Statin myopathy 07/08/2024 Annual physical exam 01/05/2024 Assessment & Plan (07/08/2024 11:26 AM EST): Reviewed labs. Discussed proper diet and regular aerobic exercise. Need aerobic exercise 5-6 days a week for 30 minutes at a time. Smaller portions and limit total calories. Colonoscopy every 10 years. Tetanus every 10 years. Advised not to smoke. Primary osteoarthritis of both knees 01/05/2024 Assessment & Plan (01/05/2024 4:24 PM EDT): Increased pain and treat with prednisone. Refer to ortho. Essential hypertension, benign 07/14/2023 Assessment & Plan (07/08/2024 11:26 AM EST): BP controlled and monitor PRN. Assessment & Plan (01/05/2024 4:22 PM EDT): BP controlled and monitor PRN. Assessment & Plan (07/14/2023 4:20 PM EST): BP controlled and monitor PRN. Chronic sinusitis 07/14/2023 DDD (degenerative disc disease), lumbar 07/14/19 Assessment & Plan (11/01/2024 12:24 PM EDT): Developed sciatica and likely related to DDD. Start prednisone and use norco PRN. Continue naproxen. Handout with ROM exercises to patient. If no improvement will need PT and x-ray. Dyslipidemia 07/14/2023 Generalized anxiety disorder 07/14/2023 Assessment & Plan (07/08/2024 11:26 AM EST): Symptoms tolerable with celexa and continue. Continue counseling. Use xanax PRN. Assessment & Plan (01/05/2024 4:23 PM EDT): Symptoms tolerable with celexa and continue. Continue counseling. Use xanax PRN. Assessment & Plan (07/14/2023 4:21 PM EST): Symptoms tolerable with celexa and continue. Continue counseling. Use xanax PRN. Gastroesophageal reflux disease 07/14/2023 Assessment & Plan (01/05/2024 4:23 PM EDT): Symptoms controlled with omeprazole and continue. Assessment & Plan (07/14/2023 4:20 PM EST): Symptoms controlled with omeprazole and continue. Hypothyroidism, adult 07/14/2023 JENNIFFER on CPAP 07/14/2023 Retinal artery occlusion 07/14/2023 Type 2 diabetes mellitus wit h hyperglycemia, without long-term current use of insulin 07/14/2023 Assessment & Plan (07/08/2024 11:26 AM EST): Not checking BS and due for A1C. Stick to ADA diet and limit carbs. Assessment & Plan (01/05/2024 4:23 PM EDT): Reports BS controlled and due for A1C. Stick to ADA diet and limit carbs. Assessment & Plan (07/14/2023 4:20 PM EST): Reports BS well controlled and due for A1C. Stick to ADA diet and limit carbs. Vitamin D deficiency 07/14/2023 Mixed stress and urge urinary incontinence 07/14 Assessment & Plan (07/14/2023 4:21 PM EST): Symptoms slightly better but persist and increase oxybutynin. MDD (major depressive disorder), recurrent episo de, mild 07/14/2023 Assessment & Plan (01/05/2024 4:23 PM EDT): Symptoms tolerable with celexa and continue. Continue counseling. Assessment & Plan (07/14/2023 4:21 PM EST): Symptoms tolerable with celexa and continue. Continue counseling. Resolved Problems Problem Noted Date Diagnosed Date Resolved Date Prediabetes 09/09/2023 09/09/2023 Strain of left rhomboid muscle 07/14/2023 01/05/2024 Assessment & Plan (07/14/2023 4:22 PM EST): Exam shows muscle strain and treat with prednisone. Use heat PRN. Handout with ROM exercises to patient. Encounters Date Type Department Care Team Description 11/01/2024 11:45 AM EDT Office Visit [facility] [address] [place] [address] Basil Finn MD Degeneration of intervertebral disc of lumbar region with lower extremity pain (Primary Dx) 11/01/2024 Bamboo flowsheet [facility] [address] [place] [address] Basil Finn MD 09/30/2024 Refill [facility] [address] [place] [address] Basil Finn MD Familial hypertriglyceridemia 08/16/2024 Refill [facility] [address] [place] [address] Basil Finn MD Vitamin D deficiency from Last 3 Months Family History Medical History Relation Name Comments Diabetes Father Cerebrovascular disease Mother Diabetes Mother Hypertension Mother Relation Name Status Comments Father Mother Social History Tobacco Use Types Packs/Day Years [...] 01/04/2024 How often do you attend chur ch or sabianism services? More than 4 times per year 01/04/2024 Do you belong to any clubs o r organizations such as restorationist groups, unions, fraternal or athletic groups, or [...] and heating? Not hard at all 01/04/2024 [facility] - [facility] [...] any time in the past 12 m [facility], were you homeless or living in a assisted (including now)? No 01/04/2024 Comments No Sex and Gender Information Value Date Recorded Sex Assigned at Not on file Legal Sex Female 6:44 PM EDT Gender Identity Not on file Sexual Orientation Not on file Last Filed Vital Signs Vital Sign Reading Time Taken Comments Blood Pressure 126/76 11/01/2024 11:48 AM EDT Pulse 93 11/01/2024 11:48 AM EDT Temperature 36.6 C (97.8 F) 11/01/2024 11:48 AM EDT Respiratory Rate 22 07/08/2024 9:25 AM EST Oxygen Saturation 97% 11/01/2024 11:48 AM EDT Inhaled Oxygen Concentration - - Weight 86.8 kg (191 lb 4 oz) 11/01/2024 11:48 AM EDT Height 167.6 cm (5' 6 ) 11/01/2024 11:48 AM EDT Body Mass Index 30.87 11/01/2024 11:48 AM EDT Plan of Treatment Upcoming Encounters Date Type Department Care Team (Late st Contact Info) Description 01/04/2025 7:00 AM EDT Office Visit [facility] [address] [place] [address] Basil Finn MD [address] [place] [address] Health Maintenance Due Date Last Done Comments CT Colonography 1964 FIT-DNA 1964 FIT 1964 FOBT 1964 Lung Cancer Screening Shared Decision Making 1964 Sigmoidoscopy 1964 Pap Smear 1985 Cervical Cancer Screening 1994 HPV/Cotest 1994 Diabetes: Hemoglobin A1C 07/22/2024 024, 01/20/2024, 09/08/2023 Diabetes: Urine Protein Screening 01/19/2025 01/20/2024, 01/20/2024, 01/20/2024, Additional history exists Influenza Vaccine (Season Ended) 2025 03/07/20, 03/16/2019 Mammogram 02/08/2025 02/09/2024, 02/08/2024 Diabetes: Retinopathy Screening 06/02/2026 , 08/06/2023 Colonoscopy 04/06/2028 04/06/2018 Colorectal Cancer Screening 04/06/2028 Procedures Procedure Name Priority Date/Time Associated Diagnosis Comments BI MAMMOGRAM SCREENING TOMOSYNTHESIS BILATERAL 02/09/2024 10:31 AM EDT MICROALBUMIN / CREATININE URINE RATIO Routine 01/20/2024 2:15 PM EDT HEMOGLOBIN A1C Routine 01/20/2024 2:15 PM EDT from Last 3 Months or Most Recently Relevant to Health Maintenance Results * Bilateral screening mammogram with tomosynthesis (02/09/2024 10:31 AM EDT) Anatomical Region Laterality Modality Breast Bilateral Mammography 02/09/2024 10:3 1 AM EDT Narrative 02/09/2024 10:30 AM EDT THIS EXAM WAS PERFORMED AT [facility] KIMBERLY DANIELER 1965 [id number] EXAM: MAMM SCREENING BILATERAL W CAD, 02/08/2024 8:42 AM CLINICAL INDICATIONS: Screening, Encounter for screening mammogram for malignant neoplasm of breast COMPARISON: No prior studies currently available for comparison. TECHNIQUE: Bilateral digital tomosynthesis MLO and CC views of the breasts were obtained, with creation of synthetic 2D views. Computer aided detection was utilized. FINDINGS: The breasts are extremely dense, which lowers the sensitivity of mammography. Bilateral breast implants present. There are no suspicious masses, calcifications, or areas of architectural distortion. IMPRESSION: No mammographic evidence of malignancy. BI-RADS: BI-RADS 1 - Negative Recommendation: Routine screening mammogram in 1 year. As a separate recommendation, due to the density and/or complexity of breast tissue on mammography, Molecular Breast Imaging is recommended as a supplement to annual screening mammography. MBI can be used to help detect mammographically occult cancers in dense breasts. Finalized by Iron Danielle MD on 02/09/2024 10:30 AM 1 d MAMM 1 YR [facility] Accredited Performing Facility: [facility] - Mammography/DEXA Imaging [address] [id number] Procedure Note Radiology, Radiologist, - 02/09/2024 THIS EXAM WAS PERFORMED AT [facility] 1965 [id number] EXAM: MAMM SCREENING BILATERAL W CAD, 02/08/2024 8:42 AM CLINICAL INDICATIONS: Screening, Encounter for screening mammogram formalignant neoplasm of breast COMPARISON: No prior studies currently available for comparison. TECHNIQUE: Bilateral digital tomosynthesis MLO and CC views of the breasts wereobtained, with creation of synthetic 2D views. Computer aided detectionwas utilized. FINDINGS: The breasts are extremely dense, which lowers the sensitivity ofmammography. Bilateral breast implants present. There are no suspicious masses, calcifications, or areas of architecturaldistortion. IMPRESSION: No mammographic evidence of malignancy. BI-RADS: BI-RADS 1 - Negative Recommendation: Routine screening mammogram in 1 year. As a separate recommendation, due to the density and/or complexity ofbreast tissue on mammography, Molecular Breast Imaging is recommended as asupplement to annual screening mammography. MBI can be used to help detectmammographically occult cancers in dense breasts. Finalized by Iron Danielle MD on 02/09/2024 10:30 AM 1 d MAMM 1 YR FDA Accredited Performing Facility: [facility] - Mammography/DEXA Imaging [address] [id number] Basil Finn MD IMG BI PROCEDURES Final Result * Microalbumin / creatinine urine ratio (01/20/2024 2:15 PM EDT) MICROALBUMIN, URINE <0.7 0.0 - 1.9 mg/dL [facility] URINE CREAT 34.47 mg/dL [facility] ALB/CREAT RATIO NOT CALCULATED 0.0 - 30.0 mg/g creat [facility] Comment: Result for Albumin/Creatinine Ratio cannot be reliably calculated because urine albumin and or urine creatinine is below the detection limit of the assay. PERFORMED AT [address], [place] [address] 01/20/2024 2:15 PM EDT 01/20/2024 2:16 PM EDT Basil Finn MD LAB URINE ORDERABLES Final Resul t Performing Organization Address [facility] Co de Phone Number [facility] * (ABNORMAL) Hemoglobin A1c (01/20/2024 2:15 PM EDT) HEMOGLOBIN A1C 5.7(H) 4.4 - 5.6 % [facility] Comment: NOTE ADA Guidelines Result HgbA1c Normal : less than 5.7 % Prediabetes : 5.7 % to 6.4 % Diabetes : > 6.4 % Use with caution in patients with abnormal hemoglobin variants as the half-life of red blood cells and in vivo glycation rates are affected. AVERAGE GLUCOSE 117 mg/dL [facility] Comment:PERFORMED AT [address], [place] [address] 01/20/2024 2:15 PM EDT 01/20/2024 2:16 PM EDT Basil Finn MD LAB BLOOD ORDERABLES Final Resul t [facility] from Last 3 Months or Most Recently Relevant to Health Maintenance Insurance [employer] Care Teams Customer Service Operator Relationship Specialty Start Date End Date Basil Finn MD [address] [place] [phone] PCP - General Family Medicine 06/22/23
--- OUTSIDE RECORDS SUMMARY | 2024-11-04 10:50 | XMS_ITS | Clinical Summary ---
Author Organization [employer] Address [id number] [address] [place] [address] Care Team Providers Care Bank Runner Name Role Phone Basil Finn MD Primary Care Provider [phone] Allergies Active Allergy Reactions Criticality Noted Date Comments Penicillins 07/17/2017 Medications levothyroxine (SYNTHROID, LEVOTHROID) 50 MCG tablet Levothyroxine Sodium 50 MCG Oral Tablet Refills: 0 Active Active fluticasone (FLONASE) 50 mcg/actuation nasal spray 0 8 Active citalopram (CeleXA) 20 mg tablet Take 1 tablet (20 mg total) by mouth in the morning. Active fenofibrate (TRICOR) 145 mg tablet Take 1 tablet (145 mg total) by mouth in the morning. Active b complex vitamins capsule Take 1 capsule by mouth in the morning. Active niacin (SLO-NIACIN) 500 mg CR tablet 2 tablets (1,000 mg total) Daily at 0300. Active ONETOUCH ULTRA BLUE TEST STRIP strip 8 Active omeprazole (PriLOSEC) 40 mg capsule Take 1 capsule (40 mg total) by mouth in the morning. Active cetirizine (ZyrTEC) 10 mg tablet Take 1 tablet (10 mg total) by mouth in the morning. Active aspirin 81 mg Take 1 tablet (81 mg total) by mouth in the morning. Active guaifenesin/dex tromethorphan (MUCINEX DM ORAL) Take by mouth as needed. Active oxyCODONE-aceta minophen (PERCOCET) 5-325 mg per tabletIndicatio ns:Hemorrhoids, unspecified hemorrhoid type Take 1 tablet by mouth every 6 (six) hours as needed for pain for up to 25 doses. Max Daily Amount: 4 tablets 25 tablet 8 Active Additional Information Patient not taking.Reported on 02/11/2023 sucralfate (CARAFATE) 1 gram tablet Take 1 tablet (1 g total) by mouth 4 (four) times a day. 120 tablet 1 8 Active Additional Information Patient not taking.Reported on 02/11/2023 famotidine (PEPCID) 20 mg tablet Take 1 tablet (20 mg total) by mouth in the morning and 1 tablet (20 mg total) before bedtime. Active lisinopril-hydr oCHLOROthiazide (PRINZIDE,ZESTO RETIC) 20-25 mg per tablet Take 1 tablet by mouth in the morning. 3 Active ascorbic acid, vitamin C, (VITAMIN C) 1000 mg tablet Take 1 tablet (1,000 mg total) by mouth in the morning. Active cholecalciferol , vitamin D3, 2,000 units capsule Take 1 capsule (2,000 Units total) by mouth in the morning. Active oxybutynin XL (DITROPAN-XL) 10 mg 24 hr tablet 15 mg in the morning. 3 Active semaglutide 0.25 mg or 0.5 mg(2 mg/1.5 mL) pen injector Inject 0.1 mg under the skin every 7 days. Unsure of strength Active Active Problems Problem Noted Date Diagnosed Date Retinal artery branch occlusion of right eye Acute cholecystitis 07/17/2017 Overview (07/17/2017): Added automatically from request for surgery [id number] Family History Medical History Relation Name Comments Cancer Brother Diabetes Brother Heart disease Brother Diabetes Father Diabetes Mother Stroke Mother Breast cancer Neg Hx Relation Name Status Comments Brother Father Alive Mother Alive Social History Tobacco Use Types Packs/Day Years [...] Orientation Straight 08/09/2023 4: 50 PM EDT Last Filed Vital Signs Vital Sign Reading Time Taken Comments Blood Pressure 117/67 01/29/2024 9:37 AM EDT Pulse 98 01/29/2024 9:37 AM EDT Temperature 36.7 C (98 F) 06/22/2021 1:05 PM EST Respiratory Rate 14 01/29/2024 9:37 AM EDT Oxygen Saturation 97% 06/22/2021 3:40 PM EST Inhaled Oxygen Concentration - - Weight 81.6 kg (180 lb) 02/08/2024 8:50 AM EDT Height 167.6 cm (5' 6 ) 02/08/2024 8:50 AM EDT Body Mass Index 29.05 02/08/2024 8:50 AM EDT Plan of Treatment Health Maintenance Due Date Last Done Comments Diabetic Ophthalmology Exam 1964 Depression Screening 1976 Adult BMI Follow Up Plan 1982 Diabetic Foot Exam 1982 DTaP,Tdap and Td Vaccines (1 - Tdap) 1983 Pap Smear 1985 Zoster (Shingles) Vaccine (2 of 2) 10/05/20222022 COVID-19 Vaccine (3 - season) 2024, 08/01/2020 Influenza Vaccine 01/23/2025 03/07/2021, 03/16/2019 Tobacco Screening 01/28/2025 01/29/2024 Adult BMI Screening 02/07/2025 02/08/2024 Medical Devices Not on file Insurance [facility] Care Teams Bank Runner Relationship Specialty Start Date End Date Basil Finn MD PCP - General Family Medicine 01/20/24
--- OUTSIDE RECORDS SUMMARY | 2024-11-04 10:50 | XMS_ITS | Encounter Summary ---
Author Organization [facility] Address [address] [facility] [place] [address] Care Team Providers Care Ammunition Specialist Name Role Phone Basil Finn MD Primary Care Provider [phone] Encounter Details Date Type Department Care Team ([facility] st Contact Info) Description 11/01/2024 Bamboo flowsheet [facility] [address] [place] [id number] Basil Finn MD [address] [place] [phone] Social History Tobacco Use Types Packs/Day Years Used Date Smoking Tobacco: Every Day Cigarettes 1.5 78.4 Started: 1977 Passive Smoke Exposure: Current Smokeless Tobacco: Never Alcohol Use Standard Drinks/Week [...] week 01/04/2024 [facility] often do you attend [facility] or [facility]-ism services? More than 4 times per year 01/04/2024 Do you belong to any clubs o r organizations such as roman catholic groups, unions, fraternal or athletic groups, or [...] and heating? Not hard at all 01/04/2024 [facility] - [...] any time in the past 12 m [facility], were you homeless or living in a usp (including now)? No 01/04/2024 Comments No Sex [...] Office Visit [facility] [address] [place] [address] Basil Finn MD [address] [place] [phone] documented as of this encounter Visit Diagnoses Not on filedocumented in this encounter Care Teams Ammunition Specialist Relationship Specialty Start Date End Date Basil Finn MD [address] [place] [phone] PCP - General Family Medicine 06/22/23 documented as of this encounter
--- OUTSIDE RECORDS SUMMARY | 2024-11-04 10:50 | XMS_ITS | Encounter Summary ---
Author Organization [facility] Address [address] [facility] [place] [address] Care Team Providers Care Life Skills Teacher Name Role Phone Basil Finn MD Primary Care Provider [phone] Basil Finn MD Unavailable Encounter Details Date Type Department Care Team (Late Contact Info) Description 09/10/2023 Orders Only [facility] [address] [place] [address] Basil Finn MD [address] [place] [address] Social History Tobacco Use Types Packs/Day Years Used Date Smoking Tobacco: Every Day Cigarettes 1.5 30 Smokeless Tobacco: Never Comments Unknown Sex and Gender Information Value Date Recorded Sex Assigned at Not on file Legal Sex Female 6:44 PM EDT Gender Identity Not on file Sexual Orientation Not on file documented as of this encounter Plan of Treatment Upcoming Encounters Date Type Department Care Team (Late Contact Info) Description 01/04/2025 7:00 AM EDT Office Visit [facility] [address] [place] [phone] Basil Finn MD [address] [place] [address] documented as of this encounter Procedures Procedure Name Priority Date/Time Associated Diagnosis Comments MISCELLANEOUS LAB TEST Routine 09/09/2023 10:16 AM EDT documented in this encounter Results * - Miscellaneous Test (09/09/2023 10:16 AM EDT) Basil Finn MD LAB BLOOD ORDERABLES Final Resul t documented in this encounter Visit Diagnoses Not on filedocumented in this encounter Care Teams Life Skills Teacher Relationship Specialty Start Date End Date Basil Finn MD [address] [place] [address] PCP - General Family Medicine 06/22/23 Basil Finn MD [address] [place] [address] PCP - Joy Lamb 02/23/24 documented as of this encounter
--- OUTSIDE RECORDS SUMMARY | 2024-11-04 10:50 | XMS_ITS | Encounter Summary ---
Author Organization [facility] Address [address] [place] [address] Care Team Providers Care Volunteer Services Assistant Name Role Phone Basil Finn MD Primary Care Provider [phone] Basil Finn MD Unavailable Encounter Details Date Type Department Care Team ([facility] Contact Info) Description 02/09/2024 External Result Encounter [facility] [address] [place] [address] Basil Finn MD [address] [place] [phone] Social History Tobacco Use Types Packs/Day Years [...] How often do you attend chur or pentecostal services? More than 4 times per year 01/04/2024 Do you belong to any clubs o r organizations such as lutheran groups, unions, fraternal or athletic groups, or [...] and heating? Not hard at all 01/04/2024 [facility] [place] [facility] - Occupational Stress [...] any time in the past 12 [address] [place], were you homeless or living in a fci (including now)? No 01/04/2024 Comments Unknown Sex [...] Office Visit [facility] [address] [place] [address] Basil Finn MD [address] [place] [address] documented as of this encounter Procedures Procedure Name Priority Date/Time Associated Diagnosis Comments BI MAMMOGRAM SCREENING TOMOSYNTHESIS BILATERAL 02/09/2024 10:31 AM EDT documented in this encounter Results * Bilateral screening mammogram with tomosynthesis (02/09/2024 10:31 AM EDT) Anatomical Region Laterality Modality Breast Bilateral Mammography 02/09/2024 10:3 1 AM EDT Narrative 02/09/2024 10:30 AM EDT THIS EXAM WAS PERFORMED AT [facility] 1965 [id number] EXAM: MAMM SCREENING BILATERAL W CAD, 02/08/2024 [...] 10:30 AM [address] M[address]M [address] [facility] Accredited Performing Facility: [facility] Mammography/DEXA Imaging [address] [place] [place] [address] Procedure Note Radiology, Radiologist, MD - 02/09/2024 THIS EXAM WAS PERFORMED AT [facility] 1965 [id number] EXAM: MAMM SCREENING BILATERAL W CAD, 02/08/2024 [...] 10:30 AM 1 [address] M[address]M [address] [facility] Accredited Performing Facility: [facility] - Mammography/DEXA Imaging [address] [facility] [address] Basil Finn MD IMG BI PROCEDURES Final Result documented in this encounter Visit Diagnoses Not on filedocumented in this encounter Care Teams Volunteer Services Assistant Relationship Specialty Start Date End Date Basil Finn MD [address] [place] [phone] PCP - General Family Medicine 06/22/23 Basil Finn MD [address] [place] [address] PCP - Joy Lamb 02/23/24 documented as of this encounter
--- OUTSIDE RECORDS SUMMARY | 2024-11-04 10:50 | XMS_ITS | Encounter Summary ---
Author Organization [facility] Address [address] [facility] [place] [address] Care Team Providers Care Corporate Executive Chef Name Role Phone Basil Finn MD Primary Care Provider [phone] Basil Finn MD Unavailable Encounter Details Date Type Department Care Team (Late Contact Info) Description 09/09/2023 Orders Only [facility] [address] [place] [phone] Basil Finn MD [address] [place] [address] Social History Tobacco Use Types Packs/Day Years [...] Office Visit [facility] [address] [place] [phone] Basil Finn MD [address] [place] [address] documented as of this encounter Visit Diagnoses Not on filedocumented in this encounter Care Teams Corporate Executive Chef Relationship Specialty Start Date End Date Basil Finn MD [address] [place] [phone] PCP - General Family Medicine 06/22/23 Basil Finn MD [address] [place] [phone] PCP - [employer] 02/23/24 documented as of this encounter
--- OUTSIDE RECORDS SUMMARY | 2024-11-04 10:50 | XMS_ITS | Encounter Summary ---
Author Organization [facility] Address [address] [facility] [place] [address] Care Team Providers Care Film Cutter Name Role Phone Basil Finn MD Primary Care Provider [phone] Basil Finn MD Unavailable Encounter Details Date Type Department Care Team (Late Contact Info) Description 09/15/2023 Orders Only [facility] [address] [place] [address] Basil Finn MD [address] [place] [phone] Social History Tobacco Use Types Packs/Day Years [...] Office Visit [facility] [address] [place] [phone] Basil Finn MD [address] [place] [address] documented as of this encounter Procedures Procedure Name Priority Date/Time Associated Diagnosis Comments MISCELLANEOUS LAB TEST Routine 09/15/2023 10:58 AM EDT MISCELLANEOUS LAB TEST Routine 09/15/2023 10:18 AM EDT documented in this encounter Results * - Miscellaneous Test (09/15/2023 10:58 AM EDT) Basil Finn MD LAB BLOOD ORDERABLES Final Resul t * - Miscellaneous Test (09/15/2023 10:18 AM EDT) us Basil Finn MD LAB BLOOD ORDERABLES Final Resul t documented in this encounter Visit Diagnoses Not on filedocumented in this encounter Care Teams Film Cutter Relationship Specialty Start Date End Date Basil Finn MD [address] [place] [address] PCP - General Family Medicine 06/22/23 Basil Finn MD [address] [place] [address] PCP - [employer] 02/23/24 documented as of this encounter
--- NOTE | 2024-11-04 10:51 | PC.NURSE ---
Visual acuity with glasses, R 20/50, L 20/40. Left eye is effected eye.
--- NOTE | 2024-11-04 11:18 | CT_ITS ---
The [address] [address] Patient Name: EMILY ATWOOD MRN: [id number] date: 1965 Sex: F Assigned Patient Location: ER Current Patient Location: ER Accession/Order Number: [id number] Exam Date: 11/04/2024 11:28 Report Date: 11/04/2024 11:31 At the request of: JAIRO PEDROZA MD Procedure: CT stroke head/brain wo con CT BRAIN WITHOUT CONTRAST: CLINICAL HISTORY: vision loss COMPARISON: None TECHNIQUE: Contiguous axial unenhanced images were obtained through the brain. This CT exam was performed using one or more following dose reduction techniques: Automated exposure control, adjustment of the mA and/or kV according to patient size, or use of iterative reconstruction technique. FINDINGS: There is no evidence of midline shift, intra or extra-axial fluid collection, hemorrhage or CT evidence of stroke. Posterior fossa appears unremarkable. Visualized intraorbital contents demonstrate no acute findings. Visualized paranasal sinuses are clear. The surrounding soft tissues are normal. CT/CT stroke head/brain wo con IMPRESSION: NO ACUTE INTRACRANIAL ABNORMALITY. Impression dictated by: Jude Dasilva Jr., D.O. 11/04/2024 11:31 AM Dictation Location: [place] [address] Electronically authenticated by: [id number] Y Date: 11/04/2024 11:31
[2024-11-04 11:58] VITALS: BP 136/82; PULSE 75; O2SAT 99
--- NOTE | 2024-11-04 15:12 | ED_ITS ---
HPI - Eye Problem General Chief complaint: Eye Problems Stated complaint: L EYE ECLUSION Time Seen by Provider: 11/04/24 10:40 Source: patient Mode of arrival: walk-in Limitations: no limitations History of Present Illness HPI Narrative: The patient is a 59 years old female with history of hypertension and diabetes she also have a history of mostly bilateral ophthalmology pathology including the fact that the patient had a retinal bleed due to diabetes with laser surgery done for her few months ago, patient mentioned that almost within the last hour she was just sitting at her desk with no exertion and she had this left eye blurred like bleb , according to her she was just looking at her phone when she noted that there is a part of the vision is obscured by that bleb , the patient mentioned that it was almost covering 20% of the vision on the left eye, the patient also noted that there was no headache there was no nausea vomiting chest pain or any other concerns, right eye vision was within normal By the time the patient arrived and I evaluated her she mentioned that the bleb in the left eye is now looks like 2 small ones, and it is moving when she looks at nearby things, and is only covering 10% of the vision in the left eye Related Data Home Medications ?Medication ?Instructions ?Recorded ?Confirmed atorvastatin 40 mg tablet 40 mg PO DAILY 11/04/2410/23 Allergies Allergy/AdvReac Type Severity Reaction Status Date / Time Penicillins Allergy Severe Rash Verified 11/04/24 10:39 Review of Systems ROS Status of ROS 10 or more systems reviewed and unremark able except as noted in history and below PFSH PFSH Social History Little interest or pleasure in doing things: not at all Feeling down, depressed, or hopeless: not at all Exam Narrative Exam Narrative: Nurses notes and vital signs reviewed and patient is not hypoxic. General: Well-appearing and in no apparent distress. Skin: Warm, dry, no pallor noted. No rash. Head: Normocephalic, atraumatic. Neck: Supple, non-tender. Eye: Pupils are equal, round and EOMI. No scleral icterus. Cardiovascular: Regular Rate and Rhythm without murmur, gallop or rub. Respiratory: No accessory muscle use or respiratory distress. Lungs are clear to auscultation, no wheezing, rales or rhonchi Chest Wall: no tenderness Back: No midline thoracic or lumbar vertebral tenderness. No CVA tenderness Musculoskeletal: normal ROM, no calf or popliteal tenderness, no lower extremity edema/swelling GI: Abdomen is soft, non-distended. Normal bowel sounds. No masses appreciated. No tenderness to palpation. No rebound, guarding, or rigidity noted. Neurological: A&O x4. No cranial nerve dysfunction observed. No truncal ataxia. Moves all extremities. Sensation intact. Psychiatric: Cooperative and interactive. Normal mood and affect. Constitutional Vital Signs, click to edit/add: Last Vital Signs Temp 98.1 F 11/04/24 10:36 Pulse 75 11/04/24 11:58 Resp 16 11/04/24 11:58 BP 136/82 11/04/24 11:58 Pulse Ox 99 11/04/24 11:58 O2 Del Method Room Air 11/04/24 11:58 Course Vital Signs Vital signs: Vital Signs Temperature 98.1 F 11/04/24 10:36 Pulse Rate 80 11/04/24 10:36 Respiratory Rate 16 11/04/24 10:36 Blood Pressure 130/92 H 11/04/24 10:36 Pulse Oximetry 94 L 11/04/24 10:36 Oxygen Delivery Method Room Air 11/04/24 10:36 Temperature 98.1 F 11/04/24 10:36 Pulse Rate 75 11/04/24 11:58 Respiratory Rate 16 11/04/24 11:58 Blood Pressure 136/82 11/04/24 11:58 Pulse Oximetry 99 11/04/24 11:58 Oxygen Delivery Method Room Air 11/04/24 11:58 MDM - Eye Problem MDM Narrative Medical decision making narrative: CT of the head showed no acute pathology and it was done because of the patient risk factors for supravascular accident but CT of the head was negative The patient presentation was mostly secondary to retinal bleeding or retinal pathology I did discuss the case with Dr.Sameer Ingram and the retina [facility] in [place] and according to him he mentioned that he thinks the patient mostly have a retinal bleeding again and she will need laser surgery The patient was discharged to follow-up with him on November 08 for laser s urgery The patient meanwhile instructed about monitoring her symptoms in case of any worsening of the symptoms or any pain or any headache or any other new complaint of weakness or numbness or tingling the patient to come back to the ER Discharge Plan Discharge Chief Complaint: Eye Problems Clinical Impression: Changes in vision Patient Disposition: Home, Self-Care Time of Disposition Decision: 11:49 Condition: Good Mode of Transportation: Private Vehicle Prescriptions / Home Meds: No Action atorvastatin 40 mg tablet 40 mg PO DAILY Print Language: Luxembourger Instructions: Blurred Vision (ED) Referrals: [facility] [Other] - 11/08/24 Referral Note: Please call to make sure when are you supposed to go for the appointment next Thursday at 11/08 Basil Finn MD [Primary Care Provider, Family Practice] - 1 week Discharge Date/Time: 11/04/24 11:58
== END 2024-11-04 11:58 | disposition home or self-care (01) ==
PROVIDERS: Emergency Provider Emergency Medicine; PCP Family Medicine
DX: H53.8 Other visual disturbances (principal)
CPT/HCPCS: 70450; 80053; 99284

== ENCOUNTER 2024-11-22 10:56 | Outpatient (RCR) | payer BC, SELFPAY | END 2024-12-03 10:20 | disposition home or self-care (01) | LOC: PT 10:56 | PROVIDERS: PCP Family Medicine; Visit Provider Family Medicine | DX: M54.30 Sciatica, unspecified side (principal) | CPT/HCPCS: 97035; 97110; 97140; 97161 ==